=== PATIENT | male | born 1950 | race Caucasian/White ===

== ENCOUNTER 2017-04-23 19:09 | Inpatient (IN) | payer OTHER ==
[~2017-04-23] VITALS: Ht 172.7 cm; Wt 73.1 kg
[~2017-04-23 19:09] MED LIST: INDOMETHACIN50 MG PO; KEFLEX500 MG PO; LOPRESSOR100 M1 PO; LOPRESSOR50 MG PO; METOPROLOL PO; NORVASC2.5 MG PO; PANTOPRAZOLE SO40 MG PO; SIMVASTATIN PO; SIMVASTATIN5 MG PO; SPIRIVA1 INHALATI IH
[2017-04-23 19:28] LABS: HEMOGLOBIN 14.2 G/DL (12.5-16.6); MCH 30.1 PG (29.0-34.0); MCV 91.3 FL (86-99); PLATELET COUNT 308 K/uL (156-360); RED BLOOD COUNT 4.71 M/uL (4.00-5.50); WHITE BLOOD COUNT 14.9 K/uL (4.1-10.2)
[2017-04-23 19:41] LABS: CHLORIDE 108 mEq/L (99-109); POTASSIUM 3.9 mEq/L (3.7-5.4); SODIUM 145 mEq/L (136-147)
[2017-04-23 19:43] LABS: GLUCOSE 99 mg/dL (70-99)
[2017-04-23 19:46] LABS: CREATININE 0.9 mg/dL (0.6-1.3); GFR ESTIMATE (CALCULATED) > 59 mL/min/ (58.99-99999)
[2017-04-23 19:47] LABS: UREA NITROGEN (BUN) 15 mg/dL (9-23)
[2017-04-23 19:55] LABS: TROP-I INTERPRETATION POSITIVE
[2017-04-23 19:56] LABS: TROPONIN-I 0.97 ng/mL (0.0-0.30)
[2017-04-23] MEDS ORDERED: VENTOLIN HFA18 GM IH (21:00)
[2017-04-23] MEDS ORDERED: INDOCIN50 MG PO (21:00)
[2017-04-23] MEDS ORDERED: SPIRIVA RESPIMAT4 GM IH (21:00)
[2017-04-23] MEDS ORDERED: ZOCOR40 MG PO (21:00)
[2017-04-23] MEDS ORDERED: VITAMIN D31000 UNI2 PO (21:01)
[2017-04-23] MEDS ORDERED: LO-DOSE ASPIRIN81 M1 PO (21:01)
[2017-04-23] MEDS ORDERED: ONE DAILY TABL1 EAC1 PO (21:01)
[2017-04-23] MEDS ORDERED: OCEAN NASAL 0.645 ML BOTH NARES (21:02)
[2017-04-23] MEDS ORDERED: MUCINEX FAST-M180 M2 PO (21:03)
[2017-04-23 21:13] LABS: PTT 34.9 SEC (25-37)
[2017-04-23 22:38] VITALS: BP 118/50
[2017-04-23 22:50] LABS: HDL CHOLESTEROL 34 MG/DL (Desirable>=40); LDL CHOLESTEROL 47 mg/dL (Desirable<100); NON-HDL CHOLESTEROL 64 mg/dL (Desirable<160); TOTAL CHOLESTEROL 98 mg/dL (Desirable<200); TRIGLYCERIDES 85 MG/DL (Normal: <150)
[2017-04-24] VITALS (16 sets, daily range): BP systolic 96–127; BP diastolic 54–77
[2017-04-24 03:07] LABS: TROP-I INTERPRETATION POSITIVE
[2017-04-24 03:08] LABS: TROPONIN-I 1.49 ng/mL (0.0-0.30)
[2017-04-24 08:40] LABS: HEMATOCRIT 41.7 % (38.0-50.0); HEMOGLOBIN 13.6 G/DL (12.5-16.6); MCH 29.4 PG (29.0-34.0); MCHC 32.6 G/DL (30.0-36.0); MCV 90.3 FL (86-99); PLATELET COUNT 305 K/uL (156-360); RBC DIS.WIDTH-CV 14.3 % (11.8-14.6); RBC DIS.WIDTH-SD 46.6 % (39-53); RED BLOOD COUNT 4.62 M/uL (4.00-5.50); WHITE BLOOD COUNT 18.3 K/uL (4.1-10.2)
[2017-04-24 09:03] LABS: ALBUMIN 3.7 G/DL (3.2-4.8); ALKALINE PHOSPHATASE 65 IU/L (3-129); ALT (GPT) 16 IU/L (3-49); AST (GOT) 39 IU/L (2-34); CHLORIDE 105 MEQ/L (99-109); CREATININE 0.9 MG/DL (0.6-1.3); GFR ESTIMATE (CALCULATED) > 59 mL/min/ (58.99-99999); GLUCOSE 87 mg/dL (70-99); POTASSIUM 3.8 MEQ/L (3.7-5.4); SODIUM 141 MEQ/L (136-147); TOTAL BILIRUBIN 0.3 MG/DL (0.0-1.0); TOTAL PROTEIN 6.2 G/DL (6.4-8.3); UREA NITROGEN (BUN) 13 mg/dL (9-23)
[2017-04-24 09:19] LABS: TROP-I INTERPRETATION POSITIVE
[2017-04-24 09:20] LABS: TROPONIN-I 3.27 ng/mL (0.0-0.30)
[2017-04-25 03:00] VITALS: BP 128/76
[2017-04-25 05:02] LABS: BASOPHIL (%) 0.3 % (0-1); EOSINOPHIL (%) 0.7 % (0-5); EOSINOPHIL COUNT 0.1 K/uL (0-0.3); HEMATOCRIT 39.8 % (38.0-50.0); IMMATURE GRANULOCYTE (%) 0.9 % (0.0-0.7); LYMPHOCYTE (%) 16.1 % (15-42); LYMPHOCYTE COUNT 2.5 K/uL (1.0-2.8); MCHC 32.7 G/DL (30.0-36.0); MCV 91.9 FL (86-99); MONOCYTE (%) 11.6 % (3-12); MONOCYTE COUNT 1.8 K/uL (0-0.8); NEUTROPHIL (%) 70.4 % (45-76); PLATELET COUNT 263 K/uL (156-360); RBC DIS.WIDTH-CV 14.6 % (11.8-14.6); RED BLOOD COUNT 4.33 M/uL (4.00-5.50); WHITE BLOOD COUNT 15.6 K/uL (4.1-10.2)
[2017-04-25 05:06] LABS: CHLORIDE 108 mEq/L (99-109); POTASSIUM 3.6 mEq/L (3.7-5.4); SODIUM 142 mEq/L (136-147)
[2017-04-25 05:08] LABS: GLUCOSE 102 mg/dL (70-99)
[2017-04-25 05:12] LABS: CREATININE 0.9 mg/dL (0.6-1.3); GFR ESTIMATE (CALCULATED) > 59 mL/min/ (58.99-99999)
[2017-04-25 05:13] LABS: UREA NITROGEN (BUN) 14 mg/dL (9-23)
[2017-04-25 08:00] VITALS: BP 117/80
[2017-04-25 11:42] VITALS: BP 127/78
[2017-04-25] MEDS ORDERED: ADVAIR HFA120 INHALA IH (11:59)
[2017-04-25] MEDS ORDERED: BRILINTA90 MG PO (11:59)
[2017-04-25 15:40] VITALS: BP 93/50
[2017-04-25 19:05] VITALS: BP 128/76
[2017-04-26 00:05] VITALS: BP 158/67
[2017-04-26 04:25] VITALS: BP 147/85
[2017-04-26 06:30] LABS: BASOPHIL (%) 0.2 % (0-1); EOSINOPHIL COUNT 0.2 K/uL (0-0.3); HEMATOCRIT 38.3 % (38.0-50.0); HEMOGLOBIN 12.4 G/DL (12.5-16.6); IMMATURE GRANULOCYTE (%) 0.6 % (0.0-0.7); LYMPHOCYTE (%) 16.6 % (15-42); LYMPHOCYTE COUNT 2.4 K/uL (1.0-2.8); MCH 29.8 PG (29.0-34.0); MCHC 32.4 G/DL (30.0-36.0); MCV 92.1 FL (86-99); MONOCYTE (%) 10.7 % (3-12); MONOCYTE COUNT 1.5 K/uL (0-0.8); NEUTROPHIL (%) 70.9 % (45-76); NEUTROPHIL COUNT 10.2 K/uL (1.8-6.4); PLATELET COUNT 252 K/uL (156-360); RBC DIS.WIDTH-CV 14.5 % (11.8-14.6); RBC DIS.WIDTH-SD 48.7 % (39-53); RED BLOOD COUNT 4.16 M/uL (4.00-5.50); WHITE BLOOD COUNT 14.4 K/uL (4.1-10.2)
[2017-04-26 07:09] LABS: ALBUMIN 3.3 G/DL (3.2-4.8); ALKALINE PHOSPHATASE 58 IU/L (3-129); ALT (GPT) 16 IU/L (3-49); AST (GOT) 36 IU/L (2-34); CHLORIDE 111 MEQ/L (99-109); CREATININE 0.6 MG/DL (0.6-1.3); GFR ESTIMATE (CALCULATED) > 59 mL/min/ (58.99-99999); GLUCOSE 98 mg/dL (70-99); POTASSIUM 4.1 MEQ/L (3.7-5.4); SODIUM 143 MEQ/L (136-147); TOTAL PROTEIN 5.4 G/DL (6.4-8.3); UREA NITROGEN (BUN) 9 mg/dL (9-23)
[2017-04-26 07:11] LABS: TOTAL BILIRUBIN 0.4 MG/DL (0.0-1.0)
[2017-04-26 07:31] VITALS: BP 151/72
[2017-04-26 08:32] LABS: HEMOGLOBIN A1c (GLYCOHEMOGLOB) 6.4 % (Below 5.7)
[2017-04-26 12:01] VITALS: BP 162/87
[2017-04-26] MEDS ORDERED: LOPRESSOR100 M1 PO (13:42)
[2017-04-26] MEDS ORDERED: NICODERM CQ1 EAC1 TD (13:42)
[2017-04-26] MEDS ORDERED: LISINOPRIL20 MG PO (13:42)
[2017-04-26] MEDS ORDERED: BREO ELLIPTA I1 EACH IH (14:00)
== END 2017-04-26 15:32 | disposition home or self-care (01) | DRG 247 ==
LOC: EME 19:09 → 4EAST 21:27 → EDOF 21:27 → ENRESERV 21:28 → 4EAST 22:29 → ENPENDDIS 04-26 → 4EAST 04-26 15:32
PROVIDERS: Hospitalist; Internal Medicine; Internal Medicine Cardiovascular Disease
DX: I21.4 Non-ST elevation (NSTEMI) myocardial infarction (principal); I25.10 Atherosclerotic heart disease of native coronary artery without angina pectoris; I47.2 Ventricular tachycardia; J44.9 Chronic obstructive pulmonary disease, unspecified; E78.00 Pure hypercholesterolemia, unspecified; R55 Syncope and collapse; R51 Headache; I10 Essential (primary) hypertension; E78.5 Hyperlipidemia, unspecified; F17.200 Nicotine dependence, unspecified, uncomplicated; Z88.0 Allergy status to penicillin
CPT/HCPCS: 71045; 80048; 80053; 80061; 82272; 82948; 83036; 84484; 85025; 85027; 85347; 85610; 85730; 93005; 93306; 94010; 94640; 94640 76; 94799; 99202; 99281; 99285; C1725; C1769; C1874; C1887; J1644; J2250; J3010; J7030

== ENCOUNTER 2017-08-22 00:39 | Observation (INO) | payer OTHER ==
[~2017-08-22] VITALS: Ht 172.7 cm; Wt 68.5 kg
[~2017-08-22 00:39] MED LIST changes: +ADVAIR HFA120 INHALA IH; +BREO ELLIPTA I1 EACH IH; +BRILINTA90 MG PO; +INDOCIN50 MG PO; +LISINOPRIL20 MG PO; +LO-DOSE ASPIRIN81 M1 PO; +MUCINEX FAST-M180 M2 PO; +NICODERM CQ1 EAC1 TD; +OCEAN NASAL 0.645 ML BOTH NARES; +ONE DAILY TABL1 EAC1 PO; +SPIRIVA RESPIMAT4 GM IH; +VENTOLIN HFA18 GM IH; +VITAMIN D31000 UNI2 PO; +ZOCOR40 MG PO
[2017-08-22 01:41] LABS: HEMATOCRIT 38.6 % (38.0-50.0); HEMOGLOBIN 12.8 G/DL (12.5-16.6); MCH 30.3 PG (29.0-34.0); MCHC 33.2 G/DL (30.0-36.0); MCV 91.5 FL (86-99); PLATELET COUNT 262 K/uL (156-360); RBC DIS.WIDTH-CV 13.2 % (11.8-14.6); RBC DIS.WIDTH-SD 44.3 % (39-53); RED BLOOD COUNT 4.22 M/uL (4.00-5.50); WHITE BLOOD COUNT 13.4 K/uL (4.1-10.2)
[2017-08-22 01:54] LABS: INTER. NORMALIZED RATIO 1.1
[2017-08-22 01:56] LABS: CHLORIDE 100 mEq/L (99-109); POTASSIUM 4.1 mEq/L (3.7-5.4); SODIUM 138 mEq/L (136-147)
[2017-08-22 01:57] LABS: ALBUMIN 4.2 g/dL (3.2-4.8); MAGNESIUM 2.1 mg/dL (1.3-2.7); PTT 30.1 SEC (25-37)
[2017-08-22 01:59] LABS: GLUCOSE 124 mg/dL (70-99); TOTAL PROTEIN 6.2 g/dL (6.4-8.3)
[2017-08-22 02:01] LABS: TOTAL BILIRUBIN 0.4 mg/dL (0.0-1.0)
[2017-08-22 02:02] LABS: PHOSPHORUS 3.4 mg/dL (2.5-4.9)
[2017-08-22 02:03] LABS: ALKALINE PHOSPHATASE 61 IU/L (3-129); CREATININE 0.9 mg/dL (0.6-1.3); GFR ESTIMATE (CALCULATED) > 59 mL/min/ (58.99-99999)
[2017-08-22 02:04] LABS: AST (GOT) 15 IU/L (2-34); DIRECT BILIRUBIN 0.2 mg/dL (0.0-0.3); UREA NITROGEN (BUN) 16 mg/dL (9-23)
[2017-08-22 02:06] LABS: ALT (GPT) 10 IU/L (3-49); LIPASE 24 U/L (1.0-51.0); TROP-I INTERPRETATION NEGATIVE; TROPONIN-I < 0.01 ng/mL (0.0-0.30)
[2017-08-22] MEDS ORDERED: NORCO 5/3251 TABLET PO (03:59)
[2017-08-22] MEDS ORDERED: NAPROSYN500 MG PO (03:59)
[2017-08-22] MEDS ORDERED: LISINOPRIL10 MG PO (07:57)
[2017-08-22] MEDS ORDERED: BRILINTA90 MG PO (07:57)
[2017-08-22] MEDS ORDERED: METOPROLOL TART25 MG PO (07:58)
[2017-08-22] MEDS ORDERED: BREO ELLIPTA I1 EACH IH (07:58)
[2017-08-22] MEDS ORDERED: PRAMIPEXOLE0.125 MG PO (07:59)
[2017-08-22 08:49] VITALS: BP 125/76
== END 2017-08-22 08:38 | disposition home or self-care (01) ==
LOC: EME → EDBD 00:39 → EDOF 07:09 → ENRESERV 07:14 → EDOF 08:38
DX: R55 Syncope and collapse (principal); R20.0 Anesthesia of skin; I48.91 Unspecified atrial fibrillation; F17.290 Nicotine dependence, other tobacco product, uncomplicated; I25.10 Atherosclerotic heart disease of native coronary artery without angina pectoris; Z95.5 Presence of coronary angioplasty implant and graft; Z79.01 Long term (current) use of anticoagulants; I95.9 Hypotension, unspecified; E86.1 Hypovolemia; Z79.82 Long term (current) use of aspirin; I10 Essential (primary) hypertension; E78.5 Hyperlipidemia, unspecified; J44.9 Chronic obstructive pulmonary disease, unspecified; F17.200 Nicotine dependence, unspecified, uncomplicated; Z88.0 Allergy status to penicillin
CPT/HCPCS: 71046; 80048; 80076; 83690; 83735; 83880; 84100; 84484; 85027; 85610; 85730; 93005; 99281; 99285; G0378; J7030

== ENCOUNTER 2017-09-27 14:27 | Emergency (ER) | payer OTHER ==
[~2017-09-27] VITALS: Ht 172.7 cm; Wt 70.3 kg
[~2017-09-27 14:27] MED LIST changes: +LISINOPRIL10 MG PO; +METOPROLOL TART25 MG PO; +NAPROSYN500 MG PO; +NORCO 5/3251 TABLET PO; +PRAMIPEXOLE0.125 MG PO
[2017-09-27] MEDS ORDERED: KEFLEX500 MG PO (17:47)
[2017-09-27 18:01] VITALS: BP 115/77
== END 2017-09-27 18:02 | disposition home or self-care (01) ==
LOC: EME 14:27
DX: S41.112A Laceration without foreign body of left upper arm, initial encounter (principal); Z79.01 Long term (current) use of anticoagulants; Z88.0 Allergy status to penicillin
CPT/HCPCS: 99281; 99283